=== PATIENT | female | born 2005 | race Caucasian/White ===

== ENCOUNTER → 2024-01-16 07:54 | Outpatient (CLI) | payer OTHER, SELFPAY ==
--- NOTE | 2024-01-16 07:58 | DI.NM.S_ITS ---
PROCEDURE: NM GASTRIC EMPTYING STUDY RADIOPHARMACEUTICAL: 1 mCi Tc-99m sulfur colloid in an egg sandwich. INDICATIONS: NAUSEA VOMITING TECHNIQUE: A Tc-99m labeled sulfur colloid labeled egg sandwich or oatmeal was served to the patient. Anterior and posterior planar images of the abdomen were obtained at 0 minutes and 30 minutes, then at hourly intervals up to 4 hours. The patient was upright and ambulating during the interval. COMPARISON: None. FINDINGS: The stomach has normal size, morphology, and position. There is normal emptying of solid gastric contents from the stomach by visual inspection. No gastroesophageal reflux is visualized. The percentage of tracer retained at specific time points are as follows: Time point Percent gastric retention Normal range 30 minutes 83% 70% or more 1 hour 32% 30% to 90% 2 hours 6% 60% or less 3 hours 2% 30% or less 4 hours not measurable 10% or less IMPRESSION: Prominent gastric emptying occurs at the 2 hour time point, with normal gastric emptying at 30 minutes and 1 hour. This is overall nonspecific. Dictated by: Justina Newberry M.D. on 01/16/2024 at 15:46 Approved by: Justina Newberry M.D. on 01/16/2024 at 16:05
== END ==
PROVIDERS: Referring Provider Physician Assistant; Visit Provider Physician Assistant
DX: R11.2 Nausea with vomiting, unspecified (principal)
CPT/HCPCS: 78264; A9541

== ENCOUNTER 2024-12-15 22:59 | Emergency (ER) | payer OTHER, SELFPAY ==
[2024-12-15 23:03] VITALS: BP 131/75; PULSE 95; RESP 16; TEMP 36.7; O2SAT 100; BMI 31.5
[2024-12-15 23:39] LABS: Add Manual Diff / Slide Review NO; Hematocrit 35.4 % (36-46); Hemoglobin 11.9 g/dL (12.0-16.0); Lymphocytes Absolute Auto 2600 /uL (1100-4500); Mean Corpuscular HGB Conc 33.5 % (30-36); Mean Corpuscular Hemoglobin 27.9 PG (26-34); Mean Corpuscular Volume 83.3 fL (80-100); Platelet Count 347 X10^3/uL (150-400)
[2024-12-15 23:49] LABS: Alanine Aminotransferase 16 IU/L (<35); Albumin 4.3 g/dL (3.5-5.0); Albumin Globulin Ratio 1.3 (1.0-2.8); Alkaline Phosphatase 59 U/L (38-126); Blood Urea Nitrogen 8 mg/dL (7-17); Calcium 8.8 mg/dL (8.4-10.2); Carbon Dioxide 22 mmol/L (22-32); Chloride 105 mmol/L (98-107); Estimated Glomerular Filt Rate > 60 mL/min (>60); Globulin 3.4 g/dL (1.7-4.1); Glucose 120 mg/dL (70-99); HEMOLYSIS < 15 (0-50); Lipase 58 U/L (23-300); Potassium 3.7 mmol/L (3.4-5.1); Sodium 137 mmol/L (137-145); Total Protein 7.7 g/dL (6.3-8.2)
--- NOTE | 2024-12-16 01:17 | ED_ITS ---
HPI - General Adult
--- NOTE | 2024-12-16 01:17 | ED.GENADULT ---
HPI - General Adult General Chief complaint: Abdominal Pain Stated complaint: poss food poisoning, vomiting, diarrhea Time Seen by Provider: 12/16/24 00:52 Source: patient Mode of arrival: Ambulatory History of Present Illness HPI narrative: 19-year-old female complains of sudden onset nausea vomiting diarrhea starting 1:00 p.m. yesterday, multiple episodes of nonbloody emesis, multiple episodes of nonbloody stool, no black or red stool, no mucoid stool. Recent exposure to antibiotics. No fevers or chills. No close contact to persons with similar symptoms, no in usual tasting or smelling foods. No recent camping or travel. Denies any known history of Crohn's disease, irritable bowel syndrome, inflammatory bowel disease, food allergies. No new foods recalled. Some crampy abdominal pain fairly mild. Has had vomiting in the past, not usually responsive to ondansetron, usually responds to Phenergan. Related Data Home Medications ?Medication ?Instructions ?Recorded ?Confirmed atenolol 25 mg tablet 25 mg PO DAILY 09/27/23 09/27/23 citalopram 40 mg tablet 40 mg PO DAILY 09/27/23 09/27/23 Previous Rx's ?Medication ?Instructions ?Recorded ondansetron 4 mg disintegrating 4 mg PO Q8H PRN nausea and 12/05/23 tablet vomiting #14 tabs promethazine 25 mg rectal 25 mg DC Q6H PRN nausea and 12/16/24 suppository vomiting #12 ea promethazine 25 mg tablet 25 mg PO TID PRN nausea and 12/16/24 vomiting #10 tabs Allergies Allergy/AdvReac Type Severity Reaction Status Date / Time amoxicillin (From Augmentin) AdvReac Intermediate Rash Verified 12/15/24 23:03 clavulanic acid (From AdvReac Intermediate Rash Verified 12/15/24 23:03 Augmentin) methadone AdvReac Intermediate Rash Verified 12/15/24 23:03 Patient History Social History (System 01/19/24 @ 13:31 by Ousmane Griffith) Smoking Status: Never smoker alcohol intake: never Smoking Status: Never smoker alcohol intake frequency: 0-2 drinks per day Exam Narrative Exam Narrative: GENERAL: Well-developed patient, in mild distress. HEAD: Atraumatic. Normocephalic. EYES: Pupils equal round and reactive. Extraocular motions intact. No scleral icterus. No injection or drainage. ENT: Nose without bleeding, purulent drainage. Throat without erythema, tonsillar hypertrophy or exudate. Airway patent. NECK: Trachea midline. Non tender CARDIOVASCULAR: Regular rate and rhythm without murmurs, gallops, or rubs. RESPIRATORY: Clear to auscultation. Breath sounds equal bilaterally. No wheezes, rales, or rhonchi. GASTROINTESTINAL: Abdomen soft, non-tender, nondistended. EXTREMITIES: No edema or joint tenderness. BACK: Nontender without deformity or crepitance. No flank tenderness. NEURO: AOx3. Motor functions grossly nonfocal. SKIN: No rash or erythema of visible areas Initial Vital Signs Initial Vital Signs: Vital Signs Temperature 98.0 F 12/15/24 23:03 Pulse Rate 95 H 12/15/24 23:03 Respiratory Rate 16 12/15/24 23:03 Blood Pressure 131/75 12/15/24 23:03 Pulse Oximetry 100 12/15/24 23:03 Oxygen Delivery Method Room Air 12/15/24 23:03 Course Orders Ordered: ED Orders 12/15/24 23:21 Complete Blood Count AUTO DIFF Stat Comprehensive Metabolic Panel Stat Lipase Stat 12/16/24 01:22 Urine Culture Stat Urine Microscopic Stat Discontinued Medications Sodium Chloride (Normal Saline 0.9%) 1,000 mls @ 1,000 mls/hr IV BOLUS ONE Stop: 12/16/24 02:30 Last Infusion: 12/16/24 02:42 Dose: Infused Documented By: Admin: 12/16/24 01:50 Dose: 1,000 mls/hr Documented By: Morphine Sulfate (Morphine 4 Mg/Ml Inj) 4 mg IV NOW ONE Stop: 12/16/24 01:50 Last Admin: 12/16/24 01:53 Dose: 4 mg Documented By: Ondansetron HCl (Ondansetron 4 Mg/2 Ml Inj) 4 mg IV NOW PRN PRN Reason: Nausea And Vomiting Last Admin: 12/16/24 01:53 Dose: 4 mg Documented By: Ondansetron HCl (Ondansetron 4 Mg Odt) 4 mg PO NOW PRN PRN Reason: Nausea And Vomiting Promethazine HCl (Promethazine 25 Mg Tablet) 25 mg PO NOW ONE Stop: 12/16/24 01:32 Last Admin: 12/16/24 02:39 Dose: Not Given Documented By: Promethazine HCl (Promethazine 25 Mg Supp) 25 mg DC NOW ONE Stop: 12/16/24 03:38 Last Admin: 12/16/24 03:44 Dose: 25 mg Documented By: Vital Signs Vital signs: Vital Signs - 8 hr 12/15/24 23:03 Temperature 98.0 F Pulse Rate 95 H Respiratory Rate 16 Blood Pressure 131/75 Pulse Oximetry 100 Oxygen Delivery Method Room Air Medical Decision Making Lab Data Lab results reviewed: Yes I reviewed the patient's lab results. Lab results narrative: White blood cell count 6400, hemoglobin 11.9, platelets adequate. Glucose 120. Normal renal function, serum CO2, electrolytes. Liver functions and lipase normal. Urine dip negative. Urine test negative. 12/15/24 23:21 12/15/24 23:21 Labs: Lab Results 12/15/24 12/15/24 Range/Units 23:21 23:30 WBC 6.4 (4.5-11.0) X10^3/uL RBC 4.26 (4.0-5.2) X10^6/uL Hgb 11.9 L (12.0-16.0) g/dL Hct 35.4 L (36-46) % MCV 83.3 (80-100) fL MCH 27.9 (26-34) PG MCHC 33.5 (30-36) % RDW 14.2 (11.6-14.8) % Plt Count 347 (150-400) X10^3/uL Neut % (Auto) 50.3 (50-75) % Lymph % (Auto) 41.2 H (25-40) % Real % (Auto) 7.2 (3-14) % Eos % (Auto) 0.8 L (2-4) % Baso % (Auto) 0.5 (0-2) % Neut # (Auto) 3200 (2203-3709) /uL Lymph # (Auto) 2600 (0368-5427) /uL Real # (Auto) 500 (0-900) /uL Eos # (Auto) 0 (0-450) /uL Baso # (Auto) 0 (0-100) /uL Sodium 137 (137-145) mmol/L Potassium 3.7 (3.4-5.1) mmol/L Chloride 105 (98-107) mmol/L Carbon Dioxide 22 (22-32) mmol/L BUN 8 (7-17) mg/dL Creatinine 0.60 (0.52-1.04) mg/dL Estimated GFR > 60 (>60) mL/min BUN/Creatinine Ratio 13.3 (6-22) Glucose 120 H (70-99) mg/dL Calcium 8.8 (8.4-10.2) mg/dL Total Bilirubin 0.2 (0.2-1.3) mg/dL AST 22 (14-36) IU/L ALT 16 (<35) IU/L Alkaline Phosphatase 59 (38-126) U/L Total Protein 7.7 (6.3-8.2) g/dL Albumin 4.3 (3.5-5.0) g/dL Globulin 3.4 (1.7-4.1) g/dL Albumin/Globulin Ratio 1.3 (1.0-2.8) Lipase 58 (23-300) U/L Urine RBC 0-1/hpf (0-5/HPF) Urine WBC None seen (0-5/HPF) Ur Squamous Epith Cells 0-1 /hpf (0-5/HPF) Urine Bacteria Few (2-10) H (None) Ur Culture Indicated? Cult not indicated Vol Urine Centrifuged 10ml (spun) Point of Care Testing Test Results Negative Urine Dip Bedside Urine Glucose Negative Bedside Urine Bilirubin - Negative Bedside Urine Ketone - Negative Urine Specific [place] 1.020 Bedside Urine Occult Blood +/- Bedside Urine pH 6 Bedside Urine Protein - Negative Bedside Urine Urobilinogen - Negative Bedside Urine Nitrite - Negative Bedside Urine Leukocytes - Negative Esterase Point of care testing: Point of Care Testing Test Results Negative Urine Dip Bedside Urine Glucose Negative Bedside Urine Bilirubin - Negative Bedside Urine Ketone - Negative Urine Specific [place] 1.020 Bedside Urine Occult Blood +/- Bedside Urine pH 6 Bedside Urine Protein - Negative Bedside Urine Urobilinogen - Negative Bedside Urine Nitrite - Negative Bedside Urine Leukocytes - Negative Esterase [facility] Narrative Medical decision making narrative: 19-year-old female with multiple episodes nonbloody emesis and loose stool diarrhea since yesterday afternoon. Afebrile, sirs screen negative. No significant tenderness on abdominal examination. Crampy abdominal pain. No recent exposures, no history of Crohn's/IBD. Labs pending. Lab data: White blood cell count 6400, hemoglobin 11.9, platelets adequate. Glucose 120. Normal renal function, serum CO2, electrolytes. Liver functions and lipase normal. Urine dip negative. Urine test negative. IV fluid bolus, requests non ondansetron antiemetic, we will try oral Phenergan which has helped in the past, believes she can keep this down. No stool specimen thus far collected. Symptoms improved, she would like to go home. Phenergan suppository prescription sent to her pharmacy, Phenergan oral tablets prescription sent to her pharmacy. Recheck with PCP in the next couple of days if still persisting symptoms. Return precautions for change worsening symptoms or any concerns prior. Discharge Plan Departure Patient Disposition: Home Clinical Impression: Nausea vomiting and diarrhea Activity Restrictions/Additional Instructions: Nausea vomiting diarrhea. Nausea responsive to Phenergan, after ondansetron dose. Screening labs unremarkable. IV fluids given. Symptoms improved. Able to take oral fluids. We will give prescription for Phenergan suppository to use if needed for nausea control. We will give prescription for Phenergan tablets for more mild nausea control if oral medications can be kept down. Recheck symptoms with your regular doctor in the next couple of days if not resolved. Return to this/nearest emergency department for any change worsening symptoms or any concerns prior. Prescriptions: New promethazine 25 mg suppository 25 mg DC Q6H PRN (Reason: nausea and vomiting) Qty: 12 0RF promethazine 25 mg tablet 25 mg PO TID PRN (Reason: nausea and vomiting) Qty: 10 0RF No Action ondansetron 4 mg tablet,disintegrating 4 mg PO Q8H PRN (Reason: nausea and vomiting) Qty: 14 0RF citalopram 40 mg Tablet 40 mg PO DAILY atenolol 25 mg Tablet 25 mg PO DAILY Stand Alone Forms: Patient Portal/API, Work Release Note
[2024-12-16] MEDS: SODIUM CHLORIDE 0.9% 1,000 ML 1000 ML IV (01:50)
[2024-12-16] MEDS: MORPHINE 4 MG/ML INJ IV (01:53)
[2024-12-16] MEDS: ONDANSETRON 4 MG/2 ML INJ IV (01:53)
[2024-12-16 02:32] LABS: Culture Indicated Urine Cult Not Indicated
[2024-12-16] MEDS: PROMETHAZINE 25 MG SUPP PR (03:44)
== END 2024-12-16 03:41 | disposition home or self-care (01) ==
PROVIDERS: Emergency Provider Emergency Medicine
DX: R11.2 Nausea with vomiting, unspecified (principal); R19.7 Diarrhea, unspecified
CPT/HCPCS: 36415; 80053; 81003; 81015; 81025; 83690; 85025; 87086; 96361; 96374; 96375; 99284; J2272; J2405; J7030

== ENCOUNTER 2025-01-05 11:07 | Emergency (ER) | payer OTHER, SELFPAY ==
[2025-01-05 11:38] VITALS: BP 112/73; PULSE 90; RESP 16; TEMP 36.6; O2SAT 100; BMI 31.5
--- NOTE | 2025-01-05 11:43 | EKG_ITS ---
[facility] [address] [place] [address] Test Date: 2025-01-05 Pat Name: Ambreen Pettit Department: [facility] Room: Gender: Female [employer]: : 2005 Requested By: Order Number: [id number] Reading MD: Pablo Mosquera Measurements Intervals Hoven Rate: 90 P: 51 MA: 118 QRS: 36 QRSD: 82 T: 6 QT: 356 QTc: 435 Interpretive Statements Normal sinus rhythm Nonspecific ST and T wave abnormality Electronically Signed On 01-06-2025 7:51:04 PST by Pablo Mosquera
--- NOTE | 2025-01-05 11:43 | DI.RAD.S_ITS ---
PROCEDURE: XR CHEST 1V INDICATIONS: Chest Pain TECHNIQUE: One view of the chest was acquired. COMPARISON: [facility], CR, XR CHEST 2V, 12/05/2023, 17:02. FINDINGS: Surgical changes and devices: None. Lungs and pleura: Lungs are clear. No pleural effusions or pneumothorax. Mediastinum: Mediastinal contours appear normal. Heart size is normal. Bones and chest wall: No suspicious bony lesions. Overlying soft tissues appear unremarkable. IMPRESSION: No acute cardiopulmonary abnormality is seen. Approved by: Min Galarza M.D. on 01/05/2025 at 12:28
[2025-01-05 12:40] VITALS: PULSE 85; O2SAT 100
--- NOTE | 2025-01-05 12:53 | ED.CHESTPAIN ---
HPI - Chest Pain General Chief Complaint: Chest Pain Stated Complaint: Chest thight, nauseated, SOB Time Seen by Provider: 01/05/25 12:46 Source: patient Mode of arrival: Ambulatory Limitations: no limitations History of Present Illness HPI narrative: Patient is a healthy 19-year-old female history of pots syndrome bipolar presenting today with left-sided chest pain. He has been there for about 1-2 days hurts to breathe and move not necessarily move her arm. No rash. She denies any kind of injury. She reports that she did move a couch about a week and a half ago but this just started within the last couple of days. No fever no chills. She took Tylenol ibuprofen and a lidocaine patch at home without any kind of relief. She does feel like she is breathing shallow our only due to pain. Related Data Home Medications ?Medication ?Instructions ?Recorded ?Confirmed atenolol 25 mg tablet 25 mg PO DAILY 09/27/23 01/05/25 citalopram 40 mg tablet 40 mg PO DAILY 09/27/23 01/05/25 aripiprazole 5 mg tablet 5 mg PO ONCE PM 01/05/25 01/05/25 bupropion HCl 300 mg 24 hr tablet, 300 mg PO DAILY 01/05/25 01/05/25 extended release diclofenac sodium 1 % topical gel 2 g topical DIRECTED 01/05/25 01/05/25 hydroxyzine HCl 25 mg tablet 25 - 100 mg PO ONCE PM PRN insomnia 01/05/25 01/05/25 levonorgestrel-ethinyl estradiol 1 tab PO DAILY 01/05/25 01/05/25 0.1 mg-20 mcg tablet (Aviane) lidocaine 5 % topical patch 1 patch topical DAILY 01/05/25 01/05/25 Previous Rx's ?Medication ?Instructions ?Recorded ondansetron 4 mg disintegrating 4 mg PO Q8H PRN nausea and 12/05/23 tablet vomiting #14 tabs promethazine 25 mg rectal 25 mg NE Q6H PRN nausea and 12/16/24 suppository vomiting #12 ea promethazine 25 mg tablet 25 mg PO TID PRN nausea and 12/16/24 vomiting #10 tabs Allergies Allergy/AdvReac Type Severity Reaction Status Date / Time amoxicillin (From Augmentin) AdvReac Intermediate Rash Verified 01/05/25 11:36 clavulanic acid (From AdvReac Intermediate Rash Verified 01/05/25 11:36 Augmentin) methadone AdvReac Intermediate Rash Verified 01/05/25 11:36 Patient History Social History Smoking Status: Never smoker alcohol intake: never Smoking Status: Never smoker alcohol intake frequency: 0-2 drinks per day Exam Initial Vital Signs Initial Vital Signs: Vital Signs Temperature 97.9 F 01/05/25 11:38 Pulse Rate 90 01/05/25 11:38 Respiratory Rate 16 01/05/25 11:38 Blood Pressure 112/73 01/05/25 11:38 Pulse Oximetry 100 01/05/25 11:38 Oxygen Delivery Method Room Air 01/05/25 11:38 GENERAL: Alert well-appearing 19-year-old female and in no acute distress. HEENT: Head atraumatic,EOMI, pupils reactive, face symmetric, moist mucous membranes CARDIOVASCULAR: Regular rate and rhythm without murmurs, rubs or gallops. Pain is reproducible on anterior palpation not posterior palpation no rash no vesicle RESPIRATORY: Breath sounds equal bilaterally, no wheezes rales or rhonchi. ABDOMEN: Soft, nontender. Normoactive bowel sounds all 4 quadrants. No guarding or rebound. EXTREMITIES: Normal range of motion, no clubbing or edema. Neurovascularly intact NEUROLOGICAL: Alert and oriented x4.Normal gait and speech. Cranial nerves II through XII grossly intact. SKIN: Warm, dry, no laceration, no petechiae, no rashes or lesions. Course Orders Ordered: ED Orders 01/05/25 11:43 XR chest 1V Stat EKG-12 Lead Stat 01/05/25 12:35 Complete Blood Count AUTO DIFF Stat Comprehensive Metabolic Panel Stat D Dimer Stat Lipase Stat Magnesium Stat NT-proBNP (BNP-Adult 18+) Stat PTT Partial Thromboplastin Joel Stat Prothrombin Time INR Stat Troponin & CK Cardiac Panel Stat Discontinued Medications Aspirin (Aspirin 81 Mg Chew Tab) 324 mg PO NOW ONE Stop: 01/05/25 11:43 Last Admin: 01/05/25 13:05 Dose: Not Given Documented By: [facility] Ketorolac Tromethamine (Ketorolac 30 Mg/Ml Vial) 15 mg IV NOW ONE Stop: 01/05/25 12:59 Last Admin: 01/05/25 13:04 Dose: 15 mg Documented By: [facility] Vital Signs Vital signs: Vital Signs - 8 hr 01/05/25 11:38 01/05/25 12:40 01/05/25 13:00 Temperature 97.9 F Pulse Rate 90 85 81 Respiratory Rate 16 18 Blood Pressure 112/73 Pulse Oximetry 100 100 100 Oxygen Delivery Method Room Air Room Air 01/05/25 13:00 01/05/25 13:30 01/05/25 13:30 Temperature Pulse Rate 80 Respiratory Rate 16 Blood Pressure 108/72 113/60 Pulse Oximetry 100 Oxygen Delivery Method 01/05/25 14:20 Temperature Pulse Rate 94 H Respiratory Rate 14 Blood Pressure 118/73 Pulse Oximetry 100 Oxygen Delivery Method Room Air MDM - Chest Pain Lab Data 01/05/25 12:35 01/05/25 12:35 Labs: Lab Results 01/05/25 Range/Units 12:35 WBC 5.9 (4.5-11.0) X10^3/uL RBC 4.17 (4.0-5.2) X10^6/uL Hgb 11.7 L (12.0-16.0) g/dL Hct 34.7 L (36-46) % MCV 83.2 (80-100) fL MCH 28.2 (26-34) PG MCHC 33.8 (30-36) % RDW 14.0 (11.6-14.8) % Plt Count 320 (150-400) X10^3/uL Neut % (Auto) 60.2 (50-75) % Lymph % (Auto) 31.4 (25-40) % [place] % (Auto) 7.7 (3-14) % Eos % (Auto) 0.3 L (2-4) % Baso % (Auto) 0.4 (0-2) % Neut # (Auto) 3600 (0974-0696) /uL Lymph # (Auto) 1900 (0597-6138) /uL Cecil # (Auto) 500 (0-900) /uL Eos # (Auto) 0 (0-450) /uL Baso # (Auto) 0 (0-100) /uL PT 11.0 (9.4-12.5) SECONDS INR 1.0 (0.9-1.3) APTT 27 (25.1-36.5) SECONDS D-Dimer 500 (<500) ng/ml Sodium 137 (137-145) mmol/L Potassium 4.2 (3.4-5.1) mmol/L Chloride 107 (98-107) mmol/L Carbon Dioxide 22 (22-32) mmol/L BUN 6 L (7-17) mg/dL Creatinine 0.66 (0.52-1.04) mg/dL Estimated GFR > 60 (>60) mL/min BUN/Creatinine Ratio 9.1 (6-22) Glucose 92 (70-99) mg/dL Calcium 8.7 (8.4-10.2) mg/dL Magnesium 2.0 (1.6-2.3) mg/dL Total Bilirubin 0.4 (0.2-1.3) mg/dL AST 21 (14-36) IU/L ALT 13 (<35) IU/L Alkaline Phosphatase 59 (38-126) U/L Total Creatine Kinase 50 (30-135) U/L Troponin I < 0.012 (0.01-0.034) ng/mL NT-Pro-B Natriuret Pep 189 H (<125) pg/mL Total Protein 7.6 (6.3-8.2) g/dL Albumin 4.4 (3.5-5.0) g/dL Globulin 3.2 (1.7-4.1) g/dL Albumin/Globulin Ratio 1.4 (1.0-2.8) Lipase 28 (23-300) U/L Point of Care Testing Test Results Negative Urine Dip Bedside Urine Glucose Negative Bedside Urine Bilirubin - Negative Bedside Urine Ketone - Negative Urine Specific [place] 1.015 Bedside Urine Occult Blood - Negative Bedside Urine pH 6.0 Bedside Urine Protein - Negative Bedside Urine Urobilinogen - Negative Bedside Urine Nitrite - Negative Bedside Urine Leukocytes - Negative Esterase Imaging Data Chest x-ray: Radiologist's Impression: PROCEDURE: XR CHEST 1V INDICATIONS: Chest Pain TECHNIQUE: One view of the chest was acquired. COMPARISON: [facility], , XR CHEST 2V, 12/05/2023, 17:02. FINDINGS: Surgical changes and devices: None. Lungs and pleura: Lungs are clear. No pleural effusions or pneumothorax. Mediastinum: Mediastinal contours appear normal. Heart size is normal. Bones and chest wall: No suspicious bony lesions. Overlying soft tissues appear unremarkable. IMPRESSION: No acute cardiopulmonary abnormality is seen. Approved by: Min Galarza M.D. on 01/05/2025 at 12:28 ECG Data Attestation: I personally reviewed and interpreted this ECG as follows: Prior ECG tracings: not available for review Interpretation: Sinus rhythm rate 90 NE interval 118 QRS 82 QTC 435 voltage T-wave inversion noted in lead 3 no S-wave no Q-waves MDM Narrative Medical decision making narrative: MDM CC: Left-sided chest pain Complicating co-morbidities: POTS, bipolar Data collected from: Patient Medical records reviewed: Previous ED visit earlier this month her nausea vomiting Differential considered: Pericarditis musculoskeletal diverticulitis shingles Exam documented above, pertinent findings include: Alert well-appearing 19-year-old female slightly reproducible chest pain no evidence of rash or shingles breath sounds clear Lab Test results independently reviewed as above. Pertinent findings: CBC no abnormalities CMP within normal limits Troponin negative BNP 189 D-dimer 500 Independently reviewed EKG as above Sinus rhythm with some low voltage and nonspecific ST-T changes none prior Imaging studies independently reviewed: Chest x-ray no acute cardiopulmonary process Consultations: none Treatments: Toradol Re-evaluations: Patient feels about the same no significant improvement but overall appears comfortable Discussion: Patient 19-year-old female presenting today with left-sided chest pain it does seem very musculoskeletal in nature reproducible and positional. She has some low voltage and some slight ST-depression with nonspecific T-wave inversions. No prior EKGs to compare troponin is negative. She has no evidence of pericarditis on her EKG. D-dimer is negative she is not hypoxic or tachycardic low suspicion for pulmonary embolism. At this time supportive care only. Discharge Plan Departure Patient Disposition: Home Clinical Impression: Acute costochondritis Instructions: DI for Costochondritis Activity Restrictions/Additional Instructions: *You have been diagnosed with costochondritis *What to do: At this time increase activity as tolerated *Continue to take medications as directed *Follow up with your primary care provider in 2-3 days or call [phone] *Return to ER if you should have increasing chest pain shortness of breath weakness or any new, worsening or concerning symptoms Prescriptions: No Action ondansetron 4 mg tablet,disintegrating 4 mg PO Q8H PRN (Reason: nausea and vomiting) Qty: 14 0RF promethazine 25 mg suppository 25 mg NE Q6H PRN (Reason: nausea and vomiting) Qty: 12 0RF promethazine 25 mg tablet 25 mg PO TID PRN (Reason: nausea and vomiting) Qty: 10 0RF aripiprazole 5 mg tablet 5 mg PO ONCE PM bupropion HCl 300 mg tablet extended release 24 hr 300 mg PO DAILY diclofenac sodium 1 % gel 2 g topical DIRECTED levonorgestrel-ethinyl estrad [Aviane] 0.1-20 mg-mcg tablet 1 tab PO DAILY lidocaine 5 % adhesive patch,medicated 1 patch topical DAILY hydroxyzine HCl 25 mg tablet 25 - 100 mg PO ONCE PM PRN (Reason: insomnia) citalopram 40 mg Tablet 40 mg PO DAILY atenolol 25 mg Tablet 25 mg PO DAILY Stand Alone Forms: Patient Portal/API, Work Release Note
[2025-01-05 12:54] LABS: Add Manual Diff / Slide Review NO; Hematocrit 34.7 % (36-46); Hemoglobin 11.7 g/dL (12.0-16.0); Lymphocytes Absolute Auto 1900 /uL (1100-4500); Mean Corpuscular HGB Conc 33.8 % (30-36); Mean Corpuscular Hemoglobin 28.2 PG (26-34); Mean Corpuscular Volume 83.2 fL (80-100); Platelet Count 320 X10^3/uL (150-400)
[2025-01-05 12:55] LABS: INR 1.0 (0.9-1.3); Prothrombin Time 11.0 SECONDS (9.4-12.5)
[2025-01-05 12:57] LABS: PTT Partial Thromboplastin Tim 27 SECONDS (25.1-36.5)
[2025-01-05 12:59] LABS: Alanine Aminotransferase 13 IU/L (<35); Albumin 4.4 g/dL (3.5-5.0); Albumin Globulin Ratio 1.4 (1.0-2.8); Alkaline Phosphatase 59 U/L (38-126); Blood Urea Nitrogen 6 mg/dL (7-17); Calcium 8.7 mg/dL (8.4-10.2); Carbon Dioxide 22 mmol/L (22-32); Chloride 107 mmol/L (98-107); Creatine Kinase 50 U/L (30-135); Estimated Glomerular Filt Rate > 60 mL/min (>60); Globulin 3.2 g/dL (1.7-4.1); Glucose 92 mg/dL (70-99); HEMOLYSIS 23 (0-50); Lipase 28 U/L (23-300); Magnesium 2.0 mg/dL (1.6-2.3); Potassium 4.2 mmol/L (3.4-5.1); Sodium 137 mmol/L (137-145); Total Protein 7.6 g/dL (6.3-8.2)
[2025-01-05 13:00] VITALS: BP 108/72; PULSE 81; RESP 18; O2SAT 100
[2025-01-05] MEDS: KETOROLAC 30 MG/ML VIAL 15 MG IV (13:04)
[2025-01-05 13:10] LABS: NT-proBNP (BNP-Adult 18+) 189 pg/mL (<125); Troponin I < 0.012 ng/mL (0.01-0.034)
--- NOTE | 2025-01-05 13:15 | PC.NURSE ---
Pt reports epigastric CP radiating to L shoulder w/onset yesterday around 10:00 am. Pain has been constant since. Pt states last BM 01/02/25, offering she might be constipated. Pt denies SOB but endorses worsening pain w/inspiration. aware.
[2025-01-05 13:30] VITALS: BP 113/60; PULSE 80; RESP 16; O2SAT 100
[2025-01-05 14:20] VITALS: BP 118/73; PULSE 94; RESP 14; O2SAT 100
== END 2025-01-05 14:21 | disposition home or self-care (01) ==
PROVIDERS: Emergency Provider Emergency Medicine
DX: M94.0 Chondrocostal junction syndrome [Tietze] (principal); G90.A Postural orthostatic tachycardia syndrome [POTS]
CPT/HCPCS: 36415; 71045; 80053; 81003; 81025; 82550; 83690; 83735; 83880; 84484; 85025; 85379; 85610; 85730; 93005; 99284; J1885

== ENCOUNTER 2025-01-12 11:30 | Emergency (ER) | payer OTHER, SELFPAY ==
[2025-01-12 11:38] VITALS: BP 129/79; PULSE 102; RESP 18; TEMP 37.3; O2SAT 99; BMI 32.3
--- NOTE | 2025-01-12 11:49 | ED.RECABL ---
HPI - Recheck/Abnormal Lab/Rx General Chief Complaint: Recheck/Abnormal Lab/Rx Stated Complaint: returning from last wk, chest inflam & pn, N/V Time Seen by Provider: 01/12/25 11:33 Source: patient Mode of arrival: Ambulatory History of Present Illness HPI narrative: 19-year-old female diagnosed with costochondritis last week been alternating Tylenol or ibuprofen for pain control presents with nonbilious nonbloody vomiting and watery diarrhea and epigastric pain for the past few days. Patient denies any chest pain, shortness breath, cough, fever, chills, body aches, urinary complaints, vaginal discharge or constipation rectal bleeding. Other than what is stated 14 point review of system is negative. Related Data Home Medications ?Medication ?Instructions ?Recorded ?Confirmed atenolol 25 mg tablet 25 mg PO DAILY 09/27/23 01/05/25 citalopram 40 mg tablet 40 mg PO DAILY 09/27/23 01/05/25 aripiprazole 5 mg tablet 5 mg PO ONCE PM 01/05/25 01/05/25 bupropion HCl 300 mg 24 hr tablet, 300 mg PO DAILY 01/05/25 01/05/25 extended release diclofenac sodium 1 % topical gel 2 g topical DIRECTED 01/05/25 01/05/25 hydroxyzine HCl 25 mg tablet 25 - 100 mg PO ONCE PM PRN insomnia 01/05/25 01/05/25 levonorgestrel-ethinyl estradiol 1 tab PO DAILY 01/05/25 01/05/25 0.1 mg-20 mcg tablet (Aviane) lidocaine 5 % topical patch 1 patch topical DAILY 01/05/25 01/05/25 Previous Rx's ?Medication ?Instructions ?Recorded ondansetron 4 mg disintegrating 4 mg PO Q8H PRN nausea and 12/05/23 tablet vomiting #14 tabs promethazine 25 mg rectal 25 mg SC Q6H PRN nausea and 12/16/24 suppository vomiting #12 ea promethazine 25 mg tablet 25 mg PO TID PRN nausea and 12/16/24 vomiting #10 tabs Allergies Allergy/AdvReac Type Severity Reaction Status Date / Time amoxicillin (From Augmentin) AdvReac Intermediate Rash Verified 01/12/25 11:43 clavulanic acid (From AdvReac Intermediate Rash Verified 01/12/25 11:43 Augmentin) methadone AdvReac Intermediate Rash Verified 01/12/25 11:43 Review of Systems Review of Systems ROS Unobtainable: All systems reviewed & are unremarkable except as noted in HPI and below Patient History Social History Smoking Status: Never smoker alcohol intake: never Smoking Status: Never smoker alcohol intake frequency: 0-2 drinks per day Exam Narrative Exam Narrative: GENERAL: [19] year old patient appears stated age. Well-developed patient, in mild distress. HEAD: Atraumatic. Normocephalic. EYES: Pupils equal round and reactive. Extraocular motions intact. No scleral icterus. No injection or drainage. CARDIOVASCULAR: Regular rate and rhythm without murmurs, gallops, or rubs. RESPIRATORY: Clear to auscultation. Breath sounds equal bilaterally. No wheezes, rales, or rhonchi. GASTROINTESTINAL: Abdomen soft, epigastric TTP nondistended. EXTREMITIES: No edema or joint tenderness. BACK: Nontender without deformity or crepitance. No flank tenderness. NEURO: AOx3. SKIN: No rash or erythema of visible areas Initial Vital Signs Initial Vital Signs: Vital Signs Temperature 99.1 F 01/12/25 11:38 Pulse Rate 102 H 01/12/25 11:38 Respiratory Rate 18 01/12/25 11:38 Blood Pressure 129/79 01/12/25 11:38 Pulse Oximetry 99 01/12/25 11:38 Oxygen Delivery Method Room Air 01/12/25 11:38 Course Orders Ordered: ED Orders 01/12/25 11:57 XR acute abdomen series Stat 01/12/25 12:22 CBC Auto Diff [Complete Blood Count AUTO DIFF] Stat CMP [Comprehensive Metabolic Panel] Stat Lipase Stat Discontinued Medications Diphenhydramine HCl (Diphenhydramine 50 Mg/Ml Vial) 50 mg IV NOW ONE Stop: 01/12/25 11:57 Last Admin: 01/12/25 12:36 Dose: 50 mg Documented By: BZ Droperidol (Droperidol 2.5 Mg/Ml Vial) 2.5 mg IV NOW ONE Stop: 01/12/25 11:57 Last Admin: 01/12/25 12:36 Dose: 2.5 mg Documented By: BZ Lactated Ringer's (Lactated Ringers) 1,000 mls @ 1,000 mls/hr IV BOLUS ONE Stop: 01/12/25 12:55 Last Infusion: 01/12/25 13:52 Dose: Infused Documented By: Admin: 01/12/25 12:36 Dose: 1,000 mls/hr Documented By: AISHA Vital Signs Vital signs: Vital Signs - 8 hr 01/12/25 11:38 01/12/25 12:18 01/12/25 12:36 Temperature 99.1 F Pulse Rate 102 H 82 90 Respiratory Rate 18 14 Blood Pressure 129/79 Pulse Oximetry 99 97 97 Oxygen Delivery Method Room Air 01/12/25 13:00 01/12/25 13:30 Temperature Pulse Rate 66 61 Respiratory Rate 14 Blood Pressure Pulse Oximetry 97 97 Oxygen Delivery Method MDM - Recheck/Abnormal Lab/Rx Lab Data 01/12/25 12:22 01/12/25 12:22 Labs: Lab Results 01/12/25 Range/Units 12:22 WBC 5.8 (4.5-11.0) X10^3/uL RBC 4.39 (4.0-5.2) X10^6/uL Hgb 12.0 (12.0-16.0) g/dL Hct 36.6 (36-46) % MCV 83.4 (80-100) fL MCH 27.4 (26-34) PG MCHC 32.9 (30-36) % RDW 14.2 (11.6-14.8) % Plt Count 355 (150-400) X10^3/uL Neut % (Auto) 61.6 (50-75) % Lymph % (Auto) 31.8 (25-40) % [place] % (Auto) 5.6 (3-14) % Eos % (Auto) 0.5 L (2-4) % Baso % (Auto) 0.5 (0-2) % Neut # (Auto) 3600 (1017-7121) /uL Lymph # (Auto) 1900 (1977-8040) /uL [place] # (Auto) 300 (0-900) /uL Eos # (Auto) 0 (0-450) /uL Baso # (Auto) 0 (0-100) /uL Sodium 138 (137-145) mmol/L Potassium 3.9 (3.4-5.1) mmol/L Chloride 107 (98-107) mmol/L Carbon Dioxide 25 (22-32) mmol/L BUN 9 (7-17) mg/dL Creatinine 0.68 (0.52-1.04) mg/dL Estimated GFR > 60 (>60) mL/min BUN/Creatinine Ratio 13.2 (6-22) Glucose 108 H (70-99) mg/dL Calcium 9.2 (8.4-10.2) mg/dL Total Bilirubin 0.3 (0.2-1.3) mg/dL AST 18 (14-36) IU/L ALT 11 (<35) IU/L Alkaline Phosphatase 61 (38-126) U/L Total Protein 7.8 (6.3-8.2) g/dL Albumin 4.4 (3.5-5.0) g/dL Globulin 3.4 (1.7-4.1) g/dL Albumin/Globulin Ratio 1.3 (1.0-2.8) Lipase 30 (23-300) U/L Point of Care Testing Test Results Negative Imaging Data Abdominal x-ray: Radiologist's Impression: [place] [address] XRay Report Signed Patient: Ambreen Pettit MR#: [id number] : 2005 Acct:[id number] Age/Sex: 19 / F Date of Service: 01/12/25 Loc: ED Accession Number: [id number] Procedure: XR acute abdomen series Ordering Provider: Abdirashid Vega D.O. PROCEDURE: XR ACUTE ABDOMEN SERIES INDICATIONS: abd pain n/v/d TECHNIQUE: One view chest and two views of the abdomen were acquired. COMPARISON: None. FINDINGS: Surgical changes and devices: None. Chest: Lungs are clear. Heart size is normal. No pleural effusions. No pneumoperitoneum. Abdomen: Bowel gas pattern is normal. No suspicious calcifications. Visualized solid organ contours appear normal. Stool load is within normal limits. Bones: No suspicious bony lesions. IMPRESSION: No acute abnormality. Dictated by: Ross Em M.D. on 01/12/2025 at 12:48 Approved by: Ross Em M.D. on 01/12/2025 at 12:48 MDM Narrative Medical decision making narrative: All labwork, vital signs, city wellness coordinator note, med list, previous ER visits and all imaging studies reviewed. Pt given fluids benadryl and droperidol. Feels much better on re-examination. Differential dx viral GE, dehydration, electrolyte derangement. Discharge Plan Departure Patient Disposition: Home Clinical Impression: Diarrhea, Epigastric abdominal pain Instructions: DI for Epigastric Pain Activity Restrictions/Additional Instructions: Return with new or worsening symptoms. Keep hydrated. Follow up PCP in 2-3 days if no improvement in symptoms. Prescriptions: No Action ondansetron 4 mg tablet,disintegrating 4 mg PO Q8H PRN (Reason: nausea and vomiting) Qty: 14 0RF promethazine 25 mg suppository 25 mg SC Q6H PRN (Reason: nausea and vomiting) Qty: 12 0RF promethazine 25 mg tablet 25 mg PO TID PRN (Reason: nausea and vomiting) Qty: 10 0RF aripiprazole 5 mg tablet 5 mg PO ONCE PM bupropion HCl 300 mg tablet extended release 24 hr 300 mg PO DAILY diclofenac sodium 1 % gel 2 g topical DIRECTED levonorgestrel-ethinyl estrad [Aviane] 0.1-20 mg-mcg tablet 1 tab PO DAILY lidocaine 5 % adhesive patch,medicated 1 patch topical DAILY hydroxyzine HCl 25 mg tablet 25 - 100 mg PO ONCE PM PRN (Reason: insomnia) citalopram 40 mg Tablet 40 mg PO DAILY atenolol 25 mg Tablet 25 mg PO DAILY Stand Alone Forms: Patient Portal/API, Work Release Note
--- NOTE | 2025-01-12 11:57 | DI.RAD.S_ITS ---
PROCEDURE: XR ACUTE ABDOMEN SERIES INDICATIONS: abd pain n/v/d TECHNIQUE: One view chest and two views of the abdomen were acquired. COMPARISON: None. FINDINGS: Surgical changes and devices: None. Chest: Lungs are clear. Heart size is normal. No pleural effusions. No pneumoperitoneum. Abdomen: Bowel gas pattern is normal. No suspicious calcifications. Visualized solid organ contours appear normal. Stool load is within normal limits. Bones: No suspicious bony lesions. IMPRESSION: No acute abnormality. Dictated by: Ross Em M.D. on 01/12/2025 at 12:48 Approved by: Ross Em M.D. on 01/12/2025 at 12:48
[2025-01-12 12:18] VITALS: PULSE 82; RESP 14; O2SAT 97
[2025-01-12 12:31] LABS: Add Manual Diff / Slide Review NO; Hematocrit 36.6 % (36-46); Hemoglobin 12.0 g/dL (12.0-16.0); Lymphocytes Absolute Auto 1900 /uL (1100-4500); Mean Corpuscular HGB Conc 32.9 % (30-36); Mean Corpuscular Hemoglobin 27.4 PG (26-34); Mean Corpuscular Volume 83.4 fL (80-100); Platelet Count 355 X10^3/uL (150-400)
[2025-01-12 12:36] VITALS: PULSE 90; O2SAT 97
[2025-01-12] MEDS: diphenhydrAMINE 50 MG/ML VIAL IV (12:36)
[2025-01-12] MEDS: droPERidol 2.5 MG/ML VIAL IV (12:36)
[2025-01-12] MEDS: LACTATED RINGERS 1,000 ML 1000 ML IV (12:36)
[2025-01-12 12:41] LABS: Alanine Aminotransferase 11 IU/L (<35); Albumin 4.4 g/dL (3.5-5.0); Albumin Globulin Ratio 1.3 (1.0-2.8); Alkaline Phosphatase 61 U/L (38-126); Blood Urea Nitrogen 9 mg/dL (7-17); Calcium 9.2 mg/dL (8.4-10.2); Carbon Dioxide 25 mmol/L (22-32); Chloride 107 mmol/L (98-107); Estimated Glomerular Filt Rate > 60 mL/min (>60); Globulin 3.4 g/dL (1.7-4.1); Glucose 108 mg/dL (70-99); HEMOLYSIS < 15 (0-50); Lipase 30 U/L (23-300); Potassium 3.9 mmol/L (3.4-5.1); Sodium 138 mmol/L (137-145); Total Protein 7.8 g/dL (6.3-8.2)
[2025-01-12 13:00] VITALS: PULSE 66; O2SAT 97
[2025-01-12 13:30] VITALS: PULSE 61; RESP 14; O2SAT 97
[2025-01-12 14:00] VITALS: PULSE 61; RESP 15; O2SAT 97
== END 2025-01-12 14:16 | disposition home or self-care (01) ==
PROVIDERS: Emergency Provider Family Medicine
DX: R19.7 Diarrhea, unspecified (principal); R10.13 Epigastric pain; R11.10 Vomiting, unspecified
CPT/HCPCS: 36415; 74022; 80053; 81025; 83690; 85025; 96361; 96374; 96375; 99284; J1200; J1790; J7120